=== PATIENT | male | born 1990 | race African-American/Black ===

== ENCOUNTER 2019-01-05 18:24 | Inpatient (IN) ==
[2019-01-05] MEDS ORDERED: ZOFRAN IV ONE (18:53)
[2019-01-05] MEDS ORDERED: SODIUM CHLORIDE 0.9% INJ ONE ×2 (18:53→18:54)
[2019-01-05] MEDS ORDERED: PROTONIX IV ONE (18:53)
[2019-01-05] MEDS ORDERED: PEPCID IV ONE (18:53)
[2019-01-05] MEDS ORDERED: G.I. COCKTAIL PO ONE (18:58)
--- NOTE | 2019-01-05 19:01 | PROVIDER DOCUMENTATION ---
This chart was entered by Adonay Olmstead Scribe, acting as scribe for Anthony Hood MD. HPI-Abdominal Pain/GI Problem - General Source: patient, EMS - History of Present Illness-ABD Nature of Presenting Problems: Pt is a 28 yom who presents to the ED via EMS with a CC of abdominal pain. EMS reports they were called by the pt at approximately 1330 and states he was having severe abdominal pain. Pt reports he has vomited 12x times today and states he was throwing up blood. EMS reports no emesis was seen on the scene. EMS reports they smelt marijuana on the scene and states the pt said he smoked a blunt earlier. Pt reports he had chicken and a milkshake for lunch and states he ate it outside and proceeded to throw up. Pt reports having diarrhea this mo rning. Pt states he has been emotional lately and reports he lost his father and grandfather in the past month. Pt reports he had similar abdominal symptoms last year and states he was seen at [place] ED. Abdominal Pain Onset Location: reports: epigastric Quality of Pain: reports: aching Severity in ED: reports: mild Onset/Duration: reports: 4-6 hours ago Timing: reports: still present Associated Symptoms: reports: diarrhea, vomiting Last BM: this morning # of Diarrhea Episodes: 1 # of Vomiting Episodes: 12 Emesis Description: reports: blood-streaked Bruising or Bleeding Gums?: No Similar Symptoms Previously?: No Recently seen or treated by another doctor?: No <Anthony Hood - Last Filed: 01/05/19 19:00> <Aurora Cardenas - Last Filed: 01/06/19 06:00> - General Chief Complaint: Abdominal Pain Stated Complaint: abd pain Time Seen by Provider: 01/05/19 18:42 Allergies/Adverse Reactions: Patient Allergies Allergy/AdvReac Type Severity Reaction Status Date / Time Penicillins Allergy Mild RASH Verified 10/28/17 08:27 Home Medications: Home Medication List Medication Instructions Recorded Confirmed Last Taken Type Clindamycin [Cleocin] 150 mg PO Q6HR #30 cap 10/28/17 Unknown Rx Ibuprofen [Motrin] 800 mg PO Q8H PRN PRN #20 tab 10/28/17 Unknown Rx Omeprazole 20 mg PO DAILY #20 tablet. 10/28/17 Unknown Rx Review of Systems - Adult - REVIEW OF SYSTEMS - ADULT Constitutional: reports: see HPI Eyes: reports: no symptoms reported Ears, Nose, Mouth & Throat: reports: no symptoms reported Cardiovascular: reports: no symptoms reported Respiratory: reports: see HPI, shortness of breath Gastrointestinal: reports: see HPI, abdominal pain, hematemesis, diarrhea, vomiting Genitourinary: reports: no symptoms reported Musculoskeletal: reports: no symptoms reported Integumentary: reports: no symptoms reported Neurological: reports: no symptoms reported Psychiatric: reports: no symptoms reported Endocrine: reports: no symptoms reported Hematologic/Lymphatic: reports: no symptoms reported Allergic/Immunologic: reports: no symptoms reported All Other Systems: Reviewed and Negative <Anthony Hood - Last Filed: 01/05/19 19:00> Past History - Adult - PAST MEDICAL HISTORY-ADULT Review of Records: reports: Old Records Reviewed, Nursing Assessment Review, Medications Reviewed, Social history reviewed & non-contributory. Major Childhood Illnesses: reports: denies history Cardiovascular: reports: denies history Respiratory: reports: denies history Gastrointestinal: reports: denies history Obstetrical/Gynecological: reports: denies history Genitourinary: reports: denies history Musculoskeletal: reports: denies history Neurological: reports: Seizures/Epilepsy Endocrine/Immune: reports: denies history Other Conditions: reports: denies history - PRIOR SURGERIES/PROCEDURES Surgical/Procedure History: reports: none - IMMUNIZATION STATUS Childhood Immunizations: See Nurse Assessment Flu Vaccine: See Nurse Assessment - FAMILY HISTORY Family History: reviewed, not pertinent - SOCIAL HISTORY Smoking: denies, non-smoker Substance Use: alcohol, marijuana Alcohol Use Frequency: occasionally <Anthony Hood - Last Filed: 01/05/19 19:00> Physical Exam-General - PHYSICAL EXAM-ADULT Initial Vital Signs Reviewed: Yes - CONSTITUTIONAL General Appearance: alert, mild distress - EYES Eyes: PERRL/EOMI - HEAD, EARS, NOSE, MOUTH & THROAT HENMT: moist mucous membranes - NECK Neck: non-tender, full range of motion - RESPIRATORY Respiratory: chest non-tender, lungs clear, normal breath sounds, no pleuratic chest pain, no respiratory distress, no accessory muscle use - CARDIOVASCULAR Cardiovascular: normal peripheral pulses, regular rate, rhythm, no edema, no gallop, no JVD, no murmur - GASTROINTESTINAL (ABDOMEN) Abdominal Exam: tenderness (Epigastric) - MUSCULOSKELETAL Extremity: normal range of motion, non-tender - SKIN Integumentary: normal color, warm/dry - NEUROLOGIC Neurologic: grossly normal, no motor/sensory deficits - PSYCHIATRIC Psych/Mental Status: anxious <Anthony Hood - Last Filed: 01/05/19 19:00> Progress - CHANGE OF SHIFT REPORT (ED Provider) 1 Report Given and Care Transferred to:: dr Guan Time of Transfer: 19:01 Items Pending: Labs <Anthony Hood - Last Filed: 01/05/19 19:00> - PLAN OF CARE/RESULTS Progress/Plan/Lab Results: Vital Signs - 8 hr 01/05/19 19:11 Temperature 97.6 F Pulse Rate 56 L Respiratory Rate 17 Blood Pressure 134/75 O2 Sat by Pulse Oximetry 100 Laboratory Results - last 24 hr 01/05/19 01/05/19 01/05/19 18:58 18:58 18:58 WBC 18.65 H RBC 5.36 Hgb 14.9 Hct 44.9 MCV 83.8 MCH 27.8 MCHC 33.2 RDW Std Deviation 12.3 Plt Count 251 MPV 10.4 Immature Gran % (Auto) 0.3 Neut % (Auto) 92.0 H Lymph % (Auto) 4.3 L Parmer % (Auto) 3.3 Eos % (Auto) 0.0 Baso % (Auto) 0.1 Immature Gran # (Auto) 0.05 H Neut # (Auto) 17.16 H Lymph # (Auto) 0.81 L Parmer # (Auto) 0.61 H Eos # (Auto) 0.00 Baso # (Auto) 0.02 Segmented Neutrophils 93 H Band Neutrophils 1 Lymphocytes 5 L Monocytes 1 PT 13.2 INR 0.99 PTT (Actin FS) 20.0 L Sodium 143 Potassium 3.8 Chloride 104 Carbon Dioxide 21 L Anion Gap 18 BUN 19 Creatinine 1.3 H Estimated GFR/1.73 m2 > 60 BUN/Creatinine Ratio 15 Glucose 142 H Calculated Osmolality 290 Calcium 10.3 H Magnesium 1.8 Total Bilirubin 0.51 AST 25 ALT 19 Alkaline Phosphatase 66 Total Protein 8.4 H Albumin 5.1 H Globulin 3.3 Albumin/Globulin Ratio 1.5 Lipase 26 Urine Source Urine Color Urine Turbidity Urine pH Ur Specific [place] Urine Protein Ur Glucose (Stick) Ur Ketones (Stick) Urine Blood Urine Nitrite Urine Bilirubin Urobilinogen Dipstick Urine Leukocytes Urine WBC (Auto) Urine RBC (Auto) U Epithel Cells (Auto) Urine Bacteria (Auto) Urine Opiates Screen Ur Oxycodone Screen Ur Methadone, Qual Ur Barbiturates Screen Ur Phencyclidine Scrn Ur Amphetamines Screen U Benzodiazepines Scrn Urine Cocaine Screen U Cannabinoids Screen 01/05/19 01/05/19 20:27 20:27 WBC RBC Hgb Hct MCV MCH MCHC RDW Std Deviation Plt Count MPV Immature Gran % (Auto) Neut % (Auto) Lymph % (Auto) Parmer % (Auto) Eos % (Auto) Baso % (Auto) Immature Gran # (Auto) Neut # (Auto) Lymph # (Auto) Parmer # (Auto) Eos # (Auto) Baso # (Auto) Segmented Neutrophils Band Neutrophils Lymphocytes Monocytes PT INR PTT (Actin FS) Sodium Potassium Chloride Carbon Dioxide Anion Gap BUN Creatinine Estimated GFR/1.73 m2 BUN/Creatinine Ratio Glucose Calculated Osmolality Calcium Magnesium Total Bilirubin AST ALT Alkaline Phosphatase Total Protein Albumin Globulin Albumin/Globulin Ratio Lipase Urine Source CLEAN CATCH Urine Color YELLOW Urine Turbidity CLEAR Urine pH 8.5 Ur Specific Furman 1.038 Urine Protein 100 A Ur Glucose (Stick) NEGATIVE Ur Ketones (Stick) 60 A Urine Blood NEGATIVE Urine Nitrite NEGATIVE Urine Bilirubin NEGATIVE Urobilinogen Dipstick 3 A Urine Leukocytes NEGATIVE Urine WBC (Auto) <10 Urine RBC (Auto) <10 U Epithel Cells (Auto) <10 Urine Bacteria (Auto) NEGATIVE Urine Opiates Screen PRESUMPTIVE POSITIVE A Ur Oxycodone Screen NONE DETECTED Ur Methadone, Qual NONE DETECTED Ur Barbiturates Screen NONE DETECTED Ur Phencyclidine Scrn NONE DETECTED Ur Amphetamines Screen NONE DETECTED U Benzodiazepines Scrn NONE DETECTED Urine Cocaine Screen NONE DETECTED U Cannabinoids Screen PRESUMPTIVE POSITIVE A Orders Category Date Time Status Saline Loc NOW Care 01/05/19 18:[address] ABD/PELVIS W/IV CONT ONLY [CT] Stat Exams 01/05/19 19:52 Completed CBC WITH ELECTRONIC DIFF [HEME] Stat Lab 01/05/19 18:58 Completed COMPREHENSIVE METABOLIC PANEL [CHEM] Stat Lab 01/05/19 18:58 Completed LIPASE [CHEM] Stat Lab 01/05/19 18:58 Completed MAGNESIUM [CHEM] Stat Lab 01/05/19 18:58 Completed PROTIME WITH INR [COAG] Stat Lab 01/05/19 18:58 Completed PTT [COAG] Stat Lab 01/05/19 18:58 Completed URINALYSIS W/POSS RFLX CULT [URINALYSIS] Stat Lab 01/05/19 20:27 Completed URINE DRUG SCREEN Stat Lab 01/05/19 20:27 Completed 0.9% Sodium Chloride Inj [Ns] 1,000 ml Med 01/05/19 20:56 Active IV 999 mls/hr Famotidine [Pepcid] Med 01/05/19 18:53 Discontinued 20 mg IV NOW ONE Ketorolac [Toradol] Med 01/05/19 19:53 Discontinued 30 mg IV NOW ONE Lido/Nelson Alk/Al&mg Hydrox [G.i. Cocktail] Med 01/05/19 18:58 Discontinued 30 ml PO NOW ONE Lorazepam [Ativan] Med 01/05/19 21:39 Discontinued 2 mg IV NOW ONE Ondansetron [Zofran] Med 01/05/19 18:53 Discontinued 4 mg IV NOW ONE Pantoprazole [Protonix] Med 01/05/19 18:53 Discontinued 40 mg IV NOW ONE Sodium Chloride 0.9% Med 01/05/19 18:54 Discontinued 10 ml INJ NOW ONE Sodium Chloride 0.9% Med 01/05/19 18:53 Discontinued 5 - 10 ml INJ NOW ONE Ptient signed out to me from Dr Hood pending labs and dispo. He appears to be very aparanoid and is acting a bit odd. He keeps trying to get out of bed and pull his monitors and wires off. His WBC is 18k and he was complaining of abd pain. CT negative. No other source of infection. Slightly dehydrated with CLAUDIA to 1.4. Could be grief reaction to recent deaths in his family. Additionally endorses black stools. Hgb stable. Family unable to handle his current state at home with 4 young daughters present. Spoke to family about admission. Given ativan to calm down. Spoke to Dr Vyas, production cell leader for hospitalist who accepted patient for admission. Further orders to be placed by their team. Result Diagrams: 01/05/19 18:58 01/05/19 18:58 - CT/MRI 1 CT Study: Abdomen (CT ABD/PELVIS W/IV CONT ONLY - 01/05/2019 INDICATION: leukocytosis, abd pain COMPARISON: 08/19/2017 FINDINGS: The lung bases are clear and the heart size is normal. The liver, gallbladder, spleen, pancreas, ad renals, and kidneys are normal. No bowel obstruction or inflammation. No adenopathy. Urinary bladder, prostate, and rectum are normal. Bones are intact and well mineralized. IMPRESSION: Negative exam. This exam was performed using automated exposure control, adjustment of mA or kV according to patient size, and/or use of iterative reconstruction technique Electronically signed by Carlos Cleaning 01/05/2019 8:57 PM) <Aurora Cardenas - Last Filed: 01/06/19 06:00> Departure - Departure Date of Disposition Decision: 01/05/19 Certified Medical Emergency: Emergent - Critical Care Note This patient required my direct & personal management of CC.: No <Anthony Hood - Last Filed: 01/05/19 19:00> - Departure Time of Disposition Decision: 21:42 <Aurora Cardenas - Last Filed: 01/06/19 06:00> - Departure DIAGNOSIS: CLAUDIA (acute kidney injury), Abnormal grief reaction, Bloody stool Abdominal pain Qualifiers: Abdominal location: generalized Qualified Code(s): R10.84 - Generalized abdominal pain Leukocytosis Qualifiers: Leukocytosis type: unspecified Qualified Code(s): D72.829 - Elevated white blood cell count, unspecified Disposition: ADMITTED INPATIENT 09 Condition: Stable Attestation - Physician/ QUITA Attestation Patient care was provided by Advanced Practice Provider:: No The physician spent face to face time with patient:: Yes Advanced Practice Provider documentation review:: Supervising physician onsite and consulted in the evaluation and care of this patient. The physician did have a face to face encounter with the patient. <Anthony Hood - Last Filed: 01/05/19 19:00> This chart was documented by the indicated scribe, (Adonay Olmstead Scribe) and accurately reflects the services I performed and decisions made by me, Anthony Hood MD, as attested by the provider's signature.
[2019-01-05 19:17] LABS: BASO# 0.02 X1000 (0.0-0.2); BASO% 0.1 % (0.0-0.8); HEMATOCRIT 44.9 % (42.0-52.0); HEMOGLOBIN 14.9 g/dL (14.0-18.0); IMM GRAN# 0.05 X1000 (0.0-0.04); IMM GRAN% 0.3 % (0.0-0.5); LYMPH# 0.81 X1000 (1.2-3.4); LYMPH% 4.3 % (20.5-51.1); MCH 27.8 PG (27-31); MCHC 33.2 g/dL (33-37); MCV 83.8 FL (81-99); MONO# 0.61 X1000 (0.11-0.59); MONO% 3.3 % (1.7-9.3); MPV 10.4 FL (7.4-10.4); NEUT# 17.16 X1000 (1.4-6.5); PLT 251 X1000 (130-400); RBC 5.36 XMIL (4.7-6.1); RDW 12.3 % (11.5-14.5); WBC 18.65 X1000 (4.8-10.8)
[2019-01-05 19:20] LABS: INR 0.99; PROTIME 13.2 Seconds (11.0-16.0)
[2019-01-05 19:28] LABS: BANDS 1 % (0-1); LYMPHS 5 % (21-51); MONO 1 % (1-9); SEGS 93 % (42-75)
[2019-01-05 19:34] LABS: AGAP 18; ALB/GLOB RATIO 1.5; ALBUMIN 5.1 g/dL (3.5-5.0); ALKALINE PHOSPHATASE 66 U/L (32-122); BUN 19 mg/dL (8-22); CALCIUM 10.3 mg/dL (8.8-10.2); CHLORIDE 104 mmol/L (98-107); COSMO 290; CREATININE 1.3 mg/dL (0.7-1.2); ESTIMATED GFR > 60; GLUCOSE 142 mg/dL (70-104); GOT 25 U/L (10-34); GPT 19 U/L (10-44); LIPASE 26 U/L (13-60); MAGNESIUM 1.8 mg/dL (1.5-2.7); POTASSIUM 3.8 mmol/L (3.5-5.1); SODIUM 143 mmol/L (136-145); TCO2 21 mmol/L (25-35); TOTAL BILIRUBIN 0.51 mg/dL (0.20-1.00); TOTAL PROTEIN 8.4 g/dL (6.3-8.3)
[2019-01-05] MEDS ORDERED: TORADOL IV ONE (19:53)
[2019-01-05 20:49] LABS: URINE SOURCE CLEAN CATCH
[2019-01-05] MEDS ORDERED: NS 1,000 ML IV ONE (20:56)
--- NOTE | 2019-01-05 21:00 | Diag Imaging Result Doc PS360 ---
CT ABD/PELVIS W/IV CONT ONLY - 01/05/2019 INDICATION: leukocytosis, abd pain COMPARISON: 08/19/2017 FINDINGS: The lung bases are clear and the heart size is normal. The liver, gallbladder, spleen, pancreas, adrenals, and kidneys are normal. No bowel obstruction or inflammation. No adenopathy. Urinary bladder, prostate, and rectum are normal. Bones are intact and well mineralized. IMPRESSION: Negative exam. This exam was performed using automated exposure control, adjustment of mA or kV according to patient size, and/or use of iterative reconstruction technique Electronically signed by Carlos Cleaning 01/05/2019 8:57 PM
[2019-01-05 21:03] LABS: BILIRUBIN URINE NEGATIVE (NEGATIVE); BLOOD URINE NEGATIVE (NEGATIVE); COLOR YELLOW; GLUCOSE URINE NEGATIVE (NEGATIVE); KETONE URINE 60 mg/dL (NEGATIVE); LEUKOCYTES URINE NEGATIVE (NEGATIVE); NITRITE URINE NEGATIVE (NEGATIVE); PH URINE 8.5; PROTEIN URINE 100 mg/dL (NEGATIVE); SP GRAVITY URINE 1.038; TURBIDITY URINE CLEAR (CLEAR); UROBILINOGEN URINE 3 mg/dL (NORMAL)
[2019-01-05 21:05] LABS: UR EPITHELIAL CELLS <10 /HPF (<10); URINE BACTERIA NEGATIVE /HPF; URINE RBC <10 /HPF (<10); URINE WBC <10 /HPF (<10)
[2019-01-05 21:18] LABS: UR AMPHETAMINES QUAL NONE DETECTED (NONE DETECT); UR BARBITUATES QUAL NONE DETECTED (NONE DETECT); UR BENZODIAZEPIN QUAL NONE DETECTED (NONE DETECT); UR CANNABINOIDS QUAL PRESUMPTIVE POSITIVE (NONE DETECT); UR COCAINE QUAL NONE DETECTED (NONE DETECT); UR METHADONE QUAL NONE DETECTED (NONE DETECT); UR OPIATES QUAL PRESUMPTIVE POSITIVE (NONE DETECT); UR OXYCODONE QUAL NONE DETECTED (NONE DETECT); UR PCP QUAL NONE DETECTED (NONE DETECT)
[2019-01-05] MEDS ORDERED: ATIVAN IV ONE (21:39)
--- NOTE | 2019-01-05 22:57 | HISTORY AND PHYSICAL ---
PRIMARY CARE PHYSICIAN: None. CHIEF COMPLAINT: Epigastric pain and dark stools x several days. HISTORY OF PRESENTING ILLNESS: A 28-year-old male without any significant past medical history presented to emergency department with several days' history of having worsening epigastric pain and dark stools. The patient was very anxious in the ED. Apparently his father had just recently, and he seems to be distraught from it. He was evaluated in the emergency department. Due to his presenting symptoms, it was thought that we will place him for observation for further evaluation and management. At the time of my examination, he had denied any headache, fever, chills and hemoptysis but complained of dark stools and epigastric pain. PAST MEDICAL HISTORY: None. PAST SURGICAL HISTORY: None. ALLERGIES: Penicillin. CURRENT MEDICATIONS: None. SOCIAL HISTORY: Denies any history of smoking. Admits to social alcohol use. Denies any illicit drug use. FAMILY HISTORY: No history of coronary disease. REVIEW OF SYSTEMS: Fourteen-point review of system as listed in HPI. Other systems negative. PHYSICAL EXAMINATION: GENERAL: Cooperative, friendly male. He is resting comfortably now. VITAL SIGNS: Temperature 97.6 degrees, pulse 56 respirations 17, blood pressure 134/75. HEENT: Atraumatic, normocephalic. Extraocular movements intact. PERRLA. NECK: No masses. CHEST: Clear to auscultation. CARDIOVASCULAR: Regular rate and rhythm. ABDOMEN: Soft. Mild tenderness. EXTREMITIES: No edema. NEUROLOGIC: He is awake, alert, oriented x3. GENITOURINARY: No bladder distention. SKIN: Warm. LABORATORIES AND STUDIES: WBCs 18.65, hemoglobin 14.9, hematocrit 44.9, platelets 251,000. Sodium 143, potassium 3.8, chloride 104, CO2 is 21, BUN is 19, creatinine is 1.3, glucose 142, lipase 26. IMAGING: CT of the abdomen: Negative exam. ASSESSMENT: A 28-year-old male without any significant past medical history presented to emergency department with several days history of having worsening epigastric pain along with dark tarry stools. He was evaluated in the emergency department. Due to his presenting symptoms, we will place him for observation for further evaluation and management. ASSESSMENT: 1. As epigastric pain. 2. Possible upper gastrointestinal bleed. 3. Anxiety. PLAN: 1. We will admit patient to medical floor with telemetry. 2. We will keep patient n.p.o. Continue with IV fluids, antiemetics. 3. Continue patient on a PPI. 4. Consult Gastroenterology. 5. We will give the patient low-dose anxiolytic. 6. We will continue to follow and reassess. Make further recommendation based on patient's clinical course. cc: Chacorta Vyas MD
[2019-01-05] MEDS ORDERED: NS 1,000 ML IV SCH (23:50)
[2019-01-05] MEDS ORDERED: NEXIUM PO ONE (23:50)
[2019-01-06] MEDS: MORPHINE IV PRN ×3 (00:12→15:40)
[2019-01-06] MEDS: ZOFRAN IV PRN ×5 (00:13→18:05)
[2019-01-06] MEDS: ATIVAN IV PRN ×4 (01:14→20:35)
[2019-01-06] MEDS: PROTONIX IV SCH ×2 (08:07→20:35)
[2019-01-06] MEDS: SODIUM CHLORIDE 0.9% INJ PRN ×2 (08:07→20:35)
[2019-01-06 08:35] LABS: HEMATOCRIT 40.8 % (42.0-52.0); HEMOGLOBIN 13.3 g/dL (14.0-18.0); MCH 27.7 PG (27-31); MCHC 32.6 g/dL (33-37); MPV 10.4 FL (7.4-10.4); RBC 4.8 XMIL (4.7-6.1); RDW 12.7 % (11.5-14.5); WBC 12.9 X1000 (4.8-10.8)
[2019-01-06 09:34] LABS: AGAP 18; BUN 17 mg/dL (8-22); CALCIUM 9.3 mg/dL (8.8-10.2); CHLORIDE 108 mmol/L (98-107); COSMO 297; CREATININE 1.3 mg/dL (0.7-1.2); ESTIMATED GFR > 60; GLUCOSE 148 mg/dL (70-104); POTASSIUM 3.6 mmol/L (3.5-5.1); SODIUM 147 mmol/L (136-145); TCO2 21 mmol/L (25-35)
[2019-01-06] MEDS: D5W 1,000 ML IV SCH ×2 (10:00→19:53)
[2019-01-06] MEDS ORDERED: HALDOL IM ONE (10:22)
[2019-01-06] MEDS: ZOSTRIX TOP PRN ×2 (13:40→19:54)
--- NOTE | 2019-01-06 18:03 | GASTROENTEROLOGY CONSULTATION ---
DATE: 01/06/2019 REASON FOR CONSULT: Epigastric pain, nausea, vomiting, and diarrhea. HISTORY OF PRESENT ILLNESS: Mr. Hall is a 28-year-old male. He came to the ER yesterday with epigastric pain, rating the pain as 10 out of 10, and describing it as a stabbing pain. Denied having any headache, fever, and chills. He said that yesterday around 2 p.m. he had a milkshake and immediately started having nausea, vomiting, and diarrhea. He vomited at least 12 to 13 times and his vomit looked green in color. Diarrhea was watery and had 3 to 4 episodes. He denied any blood in the stools. He does have a history of seizures, but not anything in the recent years. He has an extensive history of taking over-the- counter medications like Tylenol, Aleve, ibuprofen, and BC Powders almost every day, marijuana less than a gram every day. He chews tobacco, 1 pack a day. He mentioned using [place], but does not have a PCP or any provider that can prescribe him. His urine drug screen for opiates and cannabinoids was positive. No prior EGD or colonoscopy. No abnormal weight loss. REVIEW OF SYSTEMS: As per HPI. Otherwise, 12 point review of system is negative. PAST MEDICAL HISTORY: Seizures, marijuana abuse, tobacco abuse, and narcotic abuse. PAST SURGICAL HISTORY: None. ALLERGIES: Penicillin. CURRENT MEDICATIONS: OTC Tylenol, Aleve, ibuprofen, BC Powder, Narco. SOCIAL HISTORY: He is . Lives with his . Has 6 kids. He works at [employer] Denies having alcohol, consumes marijuana and tobacco everyday. FAMILY HISTORY: Mother has ulcers. Sister has H. pylori. PHYSICAL EXAMINATION: Vital Signs: Temperature is 99.9 degrees, pulse is 64, respirations is 16, blood pressure is 131/78, oxygen is 97% on room air. His weight is 148.9 pounds. BMI is 22.7 kg/m2. General: He is alert and oriented x3, but seems to be anxious and in no acute distress. HEENT: Pale conjunctivae. No icterus. PERRL. Neck: Supple. Chest: Clear to auscultation in the anterior and posterior roberson. Cardiovascular: Regular rate and rhythm. No rubs, murmurs, or gallops heard on auscultation. Abdomen: Soft, nondistended. Tender in the epigastric area. Active bowel sounds heard in all 4 quadrants. Extremities: No edema, cyanosis, or clubbing noted. 2+ pedal pulses present bilaterally. Neuro: Alert and oriented x3. Nonfocal. Cranial nerves 2-12 grossly intact. LABS: WBC is 12.90, RBCs 4.80, hemoglobin is 13.3, hematocrit is 40.8, platelet count is 222,000. Coagulation: His PT is 13.2, INR 0.99, PTT 20.0. Sodium is 147, potassium is 3.6, chloride is 108, carbon dioxide 21, anion gap is 18, BUN is 17, creatinine is 1.3, glucose is 148, calcium is 9.3, magnesium 1.8, AST 25, ALT 19, alkaline phosphatase 66. Urinalysis shows trace of urine protein, ketones. UDS is positive for opiates and cannabinoids. His CT of the abdomen and pelvis with contrast has shown a negative exam. ASSESSMENT: 1. Epigastric pain. 2. Nausea, vomiting. 3. Diarrhea. 4. Dehydration 5. Drug abuse. 6.Tobacco abuse. 7. Leukocytosis 8. Acute kidney injury PLAN: We will do an EGD tomorrow for his epigastric pain, nausea and vomiting. For dehydration, he is on IV fluids D5W @ 100 mls/hour per his primary care team, antiemetics Zofran for nausea and vomiting, GI prophylaxis protonix. We will continue to monitor his CBC and BMP. Further plan of care will be based on the EGD findings. Risks, benefits and alternatives of the procedure has been discussed, patient and family verbalized understanding of the plan of care. This plan was discussed with Dr. Alatorre. Thank you for your consult. Please call for any further questions or concerns. Dictated by KENYETTA Ramirez for Doroteo Alatorre MD PHYSICIAN ATTESTATION: I have seen and examined the patient. I have discussed and reviewed the the note by Veronica KUMARI and agree with findings and plan as documented. In brief, Mr. Hall is a 28 year old man with polypsubstance abuse who presents with intractable nausea and vomiting and epigastric pain in the setting of copious NSAID use and marijuana abuse. Workup is notable for leukocytosis, volume depletion, and CLAUDIA. He is currently on PP IV BID, IVFs, and antiemetics. Plan to keep him NPO after MN for diagnostic EGD to rule out PUD or other complications from NSAID use. No signs of pancreatitis, acute cholecystitis or hepatobiliary process. Will follow with you. JUAN
--- NOTE | 2019-01-06 22:02 | PROGRESS NOTE ---
DATE: 01/06/2019 SUBJECTIVE: The patient complains of persistent abdominal pain, as well as nausea and vomiting. The patient admits that he takes Goody's Powder for migraines that he gets once a month. OBJECTIVE: Vital Signs: Temperature 99 degrees, blood pressure 120/71, heart rate 72, respirations 17, O2 saturation is 100% on room air. General: This is a young male, lying in bed in no acute distress. Heart: S1, S2 normal. Regular rate and rhythm. Lungs: Equal air entry bilaterally. No wheezing. No rales. No rhonchi. Abdomen: Positive bowel sounds. Soft, nontender, nondistended. Extremities: No edema. No cyanosis. Neurologic: The patient is alert and oriented x3. LABORATORY: White blood cell count 12, hemoglobin 13, hematocrit 40, platelets 222,000. Sodium 147, potassium 3.6, chloride 108, BUN 17, creatinine 1.3, glucose 148. ASSESSMENT AND PLAN: 1. Abdominal pain. Possible peptic ulcer disease given the patient's nonsteroidal anti- inflammatory drug usage. Continue on IV Protonix. Gastroenterology has been consulted. 2. Leukocytosis. Improved. We will monitor closely. 3. Hypernatremia. We will change the patient to D5W. 4. Heavy marijuana usage. The patient has been counseled about cessation. 5. Deep vein thrombosis prophylaxis. We will start the patient on sequential compression devices. cc: Yamilet Pop MD
[2019-01-07] MEDS: ZOFRAN IV PRN ×3 (01:46→12:57)
[2019-01-07] MEDS: MORPHINE IV PRN ×2 (01:46→09:37)
[2019-01-07] MEDS: D5W 1,000 ML IV SCH (01:47)
[2019-01-07 07:09] LABS: HEMATOCRIT 37.9 % (42.0-52.0); HEMOGLOBIN 12.3 g/dL (14.0-18.0); MCH 28.1 PG (27-31); MCHC 32.5 g/dL (33-37); MCV 86.7 FL (81-99); MPV 10.6 FL (7.4-10.4); RBC 4.37 XMIL (4.7-6.1); RDW 12.8 % (11.5-14.5); WBC 11.56 X1000 (4.8-10.8)
[2019-01-07] MEDS: ATIVAN IV PRN ×2 (07:30→07:32)
[2019-01-07 07:38] LABS: AGAP 10; BUN 10 mg/dL (8-22); CALCIUM 9.1 mg/dL (8.8-10.2); CHLORIDE 104 mmol/L (98-107); COSMO 281; CREATININE 1.1 mg/dL (0.7-1.2); ESTIMATED GFR > 60; GLUCOSE 112 mg/dL (70-104); POTASSIUM 3.5 mmol/L (3.5-5.1); SODIUM 141 mmol/L (136-145); TCO2 27 mmol/L (25-35)
[2019-01-07] MEDS: ZOSTRIX TOP PRN (07:47)
[2019-01-07] MEDS: SODIUM CHLORIDE 0.9% INJ PRN (07:48)
[2019-01-07] MEDS: PROTONIX IV SCH ×2 (07:48→22:04)
[2019-01-07] MEDS ORDERED: DIPRIVAN 1% ONE (08:52)
[2019-01-07] MEDS ORDERED: XYLOCAINE-MPF 2% ONE (09:02)
--- NOTE | 2019-01-07 09:10 | ENDOSCOPY OPERATIVE NOTE ---
[facility] ENDOSCOPY OPERATIVE NOTE , PATIENT: Joce Hall ADMISSION DATE: 01/07/2019 [facility]#: [id number] [facility] 1990 [id number] EGD PROCEDURE REPORT PROCEDURE DATE: 01/07/2019 SURGEON: Doroteo Alatorre MD STATUS: inpatient PRODUCTION TECHNICIAN: PREOPERATIVE DIAGNOSIS: The patient is a 28 yr old male here for an EGD due to vomiting, nausea, and epigastric abdominal pain. PROCEDURE PERFORMED: EGD w/ biopsy MEDICATIONS: Per Anesthesia TOPICAL ANESTHETIC: none CONSENT: The patient understands the risks and benefits of the procedure and understands that these r isks include, but are not limited to: sedation, allergic reaction, infection, perforation and/or bleeding. Alternative means of evaluation and treatment include, among others: physical exam, x-rays, and/or surgical intervention. The patient elects to proceed with this endoscopic procedure. HISORY AND PHYSICAL: 01/07/2019 function. Hand hygiene and appropriate measures for infection prevention was taken. After the risks, benefits and alternatives of the procedure were thoroughly explained, Informed consent was verified, confirmed and timeout was successfully executed by the treatment team. The patient was anesthetized with topical anesthesia and the [id number]-[id number] ([id number]) endoscope was introduced through the mouth and advanced to the second portion of the duoden um. Retroflexion was performed in the stomach and revealed a hiatal hernia. The gastroscope was then slowly withdrawn and removed. ESOPHAGUS: Reflux esophagitis was found in the lower third of the esophagus. Esophagitis was LA Clas s A: One or more mucosal breaks < 5 mm in maximal length. A small 2cm hiatal hernia was seen. STOMACH: A patch of severe gastritis (inflammation) was found in the gastric body. A biopsy was perf ormed using cold forceps in the gastric body and gastric antrum. Sample sent for histology. DUODENUM: The duodenum was normal. SPECIMENS REMOVED: Yes ADVERSE EVENTS: There were no complications. POSTOPERATIVE DIAGNOSIS: 1. Reflux esophagitis in the lower third of the esophagus 2. A patch of severe gastritis (inflammation) was found in the gastric body; a biopsy was performed 3. The duodenum was normal 4. Small hiatal hernia. RECOMMENDATIONS: 1. Await biopsy results 2. Transition PPI to PO once daily Regular diet Avoid NSAIDs/aspirin Avoid marijuana use REPEAT EXAM: Doroteo Alatorre MD eSigned: Doroteo Alatorre MD 01/07/2019 9:09 AM cc: PATIENT NAME: Joce Hall MR#: [id number]
[2019-01-07] MEDS ORDERED: ZOFRAN ONE (09:11)
[2019-01-07] MEDS ORDERED: SODIUM CHLORIDE 0.9% INJ ONE (10:06)
[2019-01-07] MEDS ORDERED: PHENERGAN IV ONE (10:06)
[2019-01-07] MEDS ORDERED: DILAUDID IV ONE ×2 (11:10→15:05)
[2019-01-07] MEDS ORDERED: COMPAZINE IV ONE ×2 (11:11→16:11)
[2019-01-07] MEDS ORDERED: HALDOL IM ONE (11:34)
--- NOTE | 2019-01-07 13:11 | Diag Imaging Result Doc PS360 ---
ABDOMEN FLAT/UPRIGHT - 01/07/2019 INDICATION: pain COMPARISON: Prior abdomen CT FINDINGS: There is a nonobstructive bowel gas pattern. No free air or abdominal calcifications. IMPRESSION: No acute disease. Electronically signed by Carlos Cleaning 01/07/2019 1:09 PM
[2019-01-07] MEDS: NS 1,000 ML IV SCH (15:42)
[2019-01-07] MEDS: SODIUM CHLORIDE 0.9% INJ SCH (22:04)
[2019-01-07] MEDS: CARAFATE LIQUID PO SCH (22:04)
[2019-01-07] MEDS: REGLAN IV SCH (22:04)
--- NOTE | 2019-01-08 01:32 | PROGRESS NOTE ---
DATE: 01/07/2019 SUBJECTIVE: The patient had his EGD this morning, which revealed severe gastritis. The patient also continues to have persistent nausea with vomiting and generalized abdominal pain. He also was observed by the nursing staff to be sticking his fingers in his mouth and trying to make himself vomit several times since returning from his procedure this morning. OBJECTIVE: Vital Signs: Temperature 98.7 degrees, blood pressure 122/71, heart rate 60, respirations 18, O2 saturation 95% on room air. General: This is a young male lying in bed in mild distress. Head: Normocephalic, atraumatic. Heart: S1, S2 normal. Regular rate and rhythm. Lungs: Clear to auscultation bilaterally. Abdomen: Positive bowel sounds. Soft, diffuse tenderness. Extremities: No edema. No cyanosis. Neurologic: The patient is complaining of severe pain, but he is alert and oriented x4. LABS: White blood cell count 11, hemoglobin 12, hematocrit 37, platelets 190,000. Sodium 141, potassium 3.5, chloride 104, CO2 of 27, BUN 10, creatinine 1.1. Glucose 112. Abdominal x-ray, no acute disease. ASSESSMENT AND PLAN: 1. Severe abdominal pain. This is likely secondary to the patient's severe gastritis. We will continue with proton pump inhibitor therapy. The patient is too nauseous to tolerate Carafate at this time. Continue with IV Protonix every 12 hours. GI is following. 2. Severe gastritis. Continue on IV Protonix. Once the patient is able to tolerate liquids, will start Carafate. 3. Persistent nausea and vomiting. The patient has been given Zofran, Phenergan, and Compazine, all of which have not relieved his nausea. We will try Reglan. Continue with IV fluids until the patient is able to tolerate oral intake. We will likely have to consider starting Clinimix if the patient continues to have difficulty with tolerating liquids. The patient was advised to stop trying to make himself vomit by sticking his fingers in his throat. 4. History of migraine headaches. Aware. 5. Heavy marijuana usage. The patient has been counseled about cessation. This may be contributing to the patient's persistent nausea and vomiting, at this time. 6. Deep vein thrombosis prophylaxis. Continue with sequential compression devises. 7. Disposition: I updated the patient's and all of his family that was present at the bedside about the patient's medical condition and the plan of care. They are in agreement with the treatment plan at this time. cc: Yamilet Pop MD MTDD
[2019-01-08] MEDS: CARAFATE LIQUID PO SCH ×5 (04:25→21:55)
[2019-01-08] MEDS: REGLAN IV SCH ×3 (04:25→13:16)
[2019-01-08] MEDS: NS 1,000 ML IV SCH ×2 (04:26→22:40)
[2019-01-08] MEDS ORDERED: PROTONIX PO SCH (07:00)
[2019-01-08 07:38] LABS: HEMATOCRIT 39.8 % (42.0-52.0); HEMOGLOBIN 13.5 g/dL (14.0-18.0); MCH 29.4 PG (27-31); MCHC 33.9 g/dL (33-37); MCV 86.7 FL (81-99); MPV 10.5 FL (7.4-10.4); RBC 4.59 XMIL (4.7-6.1); RDW 12.6 % (11.5-14.5); WBC 7.67 X1000 (4.8-10.8)
[2019-01-08 07:50] LABS: AGAP 11; BUN 9 mg/dL (8-22); CALCIUM 8.8 mg/dL (8.8-10.2); CHLORIDE 104 mmol/L (98-107); COSMO 280; ESTIMATED GFR > 60; GLUCOSE 98 mg/dL (70-104); POTASSIUM 3.6 mmol/L (3.5-5.1); SODIUM 141 mmol/L (136-145); TCO2 26 mmol/L (25-35)
[2019-01-08 07:56] LABS: ALB/GLOB RATIO 1.8; DIRECT BILIRUBIN 0.2 mg/dL (0.00-0.20); TOTAL BILIRUBIN 0.81 mg/dL (0.20-1.00); TOTAL PROTEIN 6.2 g/dL (6.3-8.3)
[2019-01-08] MEDS: PROTONIX IV SCH ×3 (08:00→20:39)
--- NOTE | 2019-01-08 10:53 | Diag Imaging Result Doc PS360 ---
EXAM: US ABDOMEN-COMPLETE HISTORY: abd pain, nausea, vomiting, elevated lipase TECHNIQUE: Abdominal ultrasound COMPARISON: Recent CT FINDINGS: Normal pancreas. Normal aorta and inferior vena cava. No focal hepatic abnormality. Normal right kidney. No hydronephrosis. Normal gallbladder. No stones. The common bile duct measures 3 mm. No ascites. Normal spleen. Normal left kidney. No hydronephrosis. IMPRESSION: Normal abdominal ultrasound Electronically signed by Souleymane Pride 01/08/2019 10:51 AM
--- NOTE | 2019-01-08 12:37 | PROGRESS NOTE ---
DATE: 01/08/2019 SUBJECTIVE: The patient states that he is feeling better today. He has no more nausea. He has had no more vomiting. He does have generalized body pain. He states his muscles are sore from all the vomiting. He did drink some apple juice, grape juice, and Coke through the night without any nausea, vomiting, or abdominal pain. OBJECTIVE: Vital Signs: Blood pressure is 103/84, with a heart rate of 72, respirations 16, temperature is 98.4 degrees oral, with room air saturations of 96 to 100 percent. General: This is a 28-year-old male who is lying in the bed, in no distress. HEENT: Head is normocephalic, atraumatic. Mucous membranes are moist. Neck is supple with trachea midline. No JVD. Cardiovascular: Regular rate and rhythm. S1 and S2 are appreciated. Calves are nontender bilaterally, with peripheral pulses palpable x4 extremities. Pulmonary: Breath sounds are clear with no increased work of breathing noted. Gastrointestinal: Abdomen is soft, nondistended. Does have some tenderness to palpation in the epigastric to bilateral upper quadrants. Bowel sounds in all 4 quadrants. Neurologic: He is alert and oriented. Labs: WBC is 7.6, with hemoglobin 13.5, hematocrit 39.8, platelets of 167,000. Sodium 141, potassium 3.6, BUN 9, creatinine 1, glucose is 98. Lipase is 113. ASSESSMENT AND PLAN: 1. Severe abdominal pain. This has all but resolved. He states that he does have a little discomfort over the last 12 hours that he rates a 1/10. We will continue with his Protonix. Continue Carafate. Gastroenterology is following. 2. Severe gastritis. Continue intravenous Protonix, Carafate, and we will start clear liquids after testing this morning. 3. Persistent nausea and vomiting. This has resolved. 4. History of migraine headaches. Aware. 5. Heavy marijuana usage. The patient and I did, for the third time since hospitalization, discuss the importance of marijuana cessation. We did discuss hyperemesis cannabinoid syndrome. We also did discuss the fact that marijuana paralyzes the gastrointestinal tract which can lead to these symptoms as well as gallbladder trouble. He did voice understanding. 6. Heavy aspirin use. The patient and I did discuss, for the second time in this hospitalization, the importance of not taking aspirin or anti-inflammatories to which he did voice understanding. 7. Deep venous thrombosis prophylaxis. We will continue with sequential compression devices. 8. The patient will remain nothing per oral for a HIDA scan and abdominal ultrasound today. We did discuss that he should remain NPO until we diswcuss results of both tests, to which he and his mother voiced understanding. 9. Check a CBC and a BMP and lipase in the morning. Dictated by KENYETTA Morfin for Yamilet Pop MD cc: KENYETTA Morfin MD I performed a face to face encounter on the patient. I reviewed all labs. I agree with the assessment and plan as dictated. [facility]
--- NOTE | 2019-01-08 13:05 | Diag Imaging Result Doc PS360 ---
EXAM: HIDA SCAN W/ EJECTION FRACTION HISTORY: abdominal pain TECHNIQUE: Nuclear medicine HIDA scan with gallbladder ejection fraction COMPARISON: None. FINDINGS: 5.1 mCi Choletec administered. There is normal uptake in the liver. Normal filling of the gallbladder with emptying into the small bowel. Ensure was given to determine the gallbladder ejection fraction. This is calculated to be 61% at 45 minutes. IMPRESSION: Normal HIDA scan and gallbladder ejection fraction Electronically signed by Souleymane Pride 01/08/2019 1:02 PM
[2019-01-08] MEDS: ZOFRAN IV PRN ×3 (13:13→21:55)
[2019-01-08] MEDS: DILAUDID IV PRN ×3 (13:13→22:36)
[2019-01-08] MEDS ORDERED: G.I. COCKTAIL PO ONE (14:42)
[2019-01-08] MEDS: SODIUM CHLORIDE 0.9% INJ SCH (15:31)
[2019-01-08] MEDS ORDERED: ATIVAN IV ONE (16:14)
--- NOTE | 2019-01-08 18:30 | GASTROENTEROLOGY PROGRESS NOTE ---
DATE: 01/08/2019 SUBJECTIVE: Mr. Hall is a 28-year-old male, resting in bed. Denied any nausea or vomiting, but complained of generalized abdominal pain in the lower quadrants. He is currently n.p.o. for HIDA scan and abdominal U/S. OBJECTIVE: Vital Signs: Temperature is 98.4 degrees, pulse is 72, respirations of 16, blood pressure is 103/84, oxygen saturation is 98 on room air. General: Alert, oriented x3, in no acute distress. HEENT: Pale conjunctivae. No icterus. PERRL. Neck: Supple. Lungs: Clear to auscultation in anterior and posterior roberson. Cardiovascular: Regular rate and rhythm. No murmurs, rubs, or gallops heard on auscultation. Abdomen: Soft, nondistended. Tender in the lower quadrants. Active bowel sounds heard in all 4 quadrants. Extremities: No clubbing, no cyanosis, or edema noted. 2+ pedal pulses present bilaterally. Neurologic: Alert and oriented x3. LABS AND DIAGOSTIC TEST: WBC 7.67, RBC 4.59, Hg 13.5, Hct 39.8, Platelets [id number], sodium 141, potassium 3.6, BUN 11, Creatinine 9, lipase 113 AST 25, ALT 19, alkaline phosphate 66, Abdomen X-ray - no a cute distress, CT of abd/pelvis - negative, abdominal U/S and HIDA scan - normal. IMPRESSION AND PLAN: Epigastric pain Nausea/Vomiting Dehydration Gastritis Leukocytosis Acute Kidney injury Tobacco abuse Marijuana abuse Mildly elevated Lipase this AM. Plan: The patient is currently n.p.o. for his HIDA scan, he can continue having clear liquids after the test. He has denied any nausea and vomiting. We will continue his GI prophylaxis protonix and carafate for gastritis. His EGD findings was reflux esophagitis and gastritis. Biopsy was performed and awaiting the results. We will continue the patient with antiemetics, Zofran and Reglan for nausea, IV fluids, normal saline at 100 mL for dehydration. His hemoglobin today was 13.5 and hematocrit was 39.8. We will continue to monitor his CBCs and his BMPs and follow the plan of care per primary care team. We have discussed with the risk of marijuana (may cause cyclic vomiting syndrome) and tobacco use, advised patient to stop consuming it, patient acknowledge understanding of the instructions. This plan was discussed with Dr. Colby. Please call us for any further questions or concerns. Dictated by KENYETTA Ramirez for Louis Colby MD cc: Louis Colby MD Patient seen and examined myself. I agree with the above plan of care. I have discussed the above with the patient and mother at bedside and all questions were answered. Please call us with any further questions MTDD
--- NOTE | 2019-01-08 18:59 | PROGRESS NOTE ---
DATE: 01/08/2019 SUBJECTIVE: I spoke with Mr. Hall this morning and he had no abdominal pain, no nausea or vomiting. He stated that he drank clear liquids in the form of apple juice, grape juice and Coke through yesterday afternoon and at night without any nausea, vomiting or abdominal pain. We discussed that he needed to stay NPO for his HIDA scan and abdominal ultrasound, that I would watch for results, and once resulted I would come update him. If they were normal, we could start him on clear liquids and advance his diet. The patient and mother both voiced understanding of this. Dr. Colby was in the room at the time that this was discussed. Dr. Colby did discuss with the patient that he needed to avoid any spicy foods, tomato foods, any caffeine, Coke, coffee, tea, etc. The patient and his mother voiced understanding. I went into the room to update Mr. Hall and found him on the floor in his boxer shorts, crawling on all fours, stopping to stick his finger down his throat to make himself gag. His mother was at the bedside and she was very upset and crying. The patient stated that he drank an Ensure, and symptoms began within about 5 minutes of drinking that Ensure. I did reiterate that we did discuss that he would stay NPO until we discussed results, and if they were normal he would start clear liquids, avoiding foods as stated above per Dr. Colby. He and the mother both did reiterate that they heard this discussion, although he drank an Ensure. They were not forthcoming about where he got the Ensure. While we were talking the patient had requested a 7-Up and this had been brought him, and he did take a few sips. He denied any pain or nausea. He had no gagging after having the sips of Sprite. The patient had taken a few sips out of a Sprite. He stated that his symptoms did not change drinking the Sprite. In fact, it made him feel better, although he still complained of epigastric pain. Dr. Colby and Dr. Pop were notified. GI cocktail was ordered. Dictated by KENYETTA Morfin for Yamilet Pop MD cc: KENYETTA Morfin MD [facility]
[2019-01-09] MEDS: ZOFRAN IV PRN ×6 (02:12→23:11)
[2019-01-09] MEDS: CARAFATE LIQUID PO SCH ×2 (02:14→08:11)
[2019-01-09] MEDS: DILAUDID IV PRN ×6 (02:34→23:05)
[2019-01-09 07:14] LABS: BASO# 0.03 X1000 (0.0-0.2); BASO% 0.3 % (0.0-0.8); EOS# 0.01 X1000 (0.0-0.7); EOS% 0.1 % (0.0-10.0); HEMATOCRIT 39.3 % (42.0-52.0); HEMOGLOBIN 12.9 g/dL (14.0-18.0); LYMPH# 1.39 X1000 (1.2-3.4); MCH 27.8 PG (27-31); MCHC 32.8 g/dL (33-37); MCV 84.7 FL (81-99); MONO# 0.59 X1000 (0.11-0.59); MONO% 6.8 % (1.7-9.3); MPV 10.6 FL (7.4-10.4); NEUT# 6.67 X1000 (1.4-6.5); NEUT% 76.8 % (42.2-75.2); PLT 187 X1000 (130-400); RBC 4.64 XMIL (4.7-6.1); RDW 12.1 % (11.5-14.5); WBC 8.69 X1000 (4.8-10.8)
[2019-01-09 08:05] LABS: AGAP 11; BUN 10 mg/dL (8-22); CALCIUM 8.9 mg/dL (8.8-10.2); CHLORIDE 100 mmol/L (98-107); COSMO 272; CREATININE 0.9 mg/dL (0.7-1.2); ESTIMATED GFR > 60; GLUCOSE 91 mg/dL (70-104); LIPASE 26 U/L (13-60); POTASSIUM 3.4 mmol/L (3.5-5.1); SODIUM 137 mmol/L (136-145); TCO2 26 mmol/L (25-35)
[2019-01-09] MEDS: PROTONIX IV SCH (08:13)
[2019-01-09 08:17] LABS: ALB/GLOB RATIO 1.6; ALBUMIN 4.1 g/dL (3.5-5.0); DIRECT BILIRUBIN 0.2 mg/dL (0.00-0.20); TOTAL BILIRUBIN 0.75 mg/dL (0.20-1.00); TOTAL PROTEIN 6.6 g/dL (6.3-8.3)
[2019-01-09] MEDS: NS 1,000 ML IV SCH ×2 (08:20→19:23)
[2019-01-09] MEDS ORDERED: BUSPAR PO ONE (10:39)
[2019-01-09] MEDS: TOPAMAX PO SCH (13:09)
--- NOTE | 2019-01-09 16:15 | GASTROENTEROLOGY PROGRESS NOTE ---
DATE: 01/09/2019 SUBJECTIVE: Mr. Hall 28 year old male was walking in the hallway, he mentioned feeling very good. He denied any nausea, vomiting, abdominal pain. OBJECTIVE: Vital Signs: Temperature is 98.8 degrees, pulse is 79, respirations 16, blood pressure is 128/80, oxygen saturation is 97 on room air. Weight 148.7 pounds, BMI 22.7 kg per meter square. General: Alert, oriented x3, in no acute distress. HEENT: Pale conjunctivae. No icterus. PERRL. Neck: Supple. Lungs: Clear to auscultation in anterior and posterior roberson. Cardiovascular: Regular ate and rhythm. No rubs or gallops on auscultation. Abdomen: Nondistended, nontender. Soft. Active bowel sounds heard in all 4 quadrants. Extremities: No cyanosis, clubbing, or edema, 2+ pedal pulses noted bilaterally. Neurologic: Alert and oriented x3. LAB: WBC 8.69, RBC is 12.6, hemoglobin is 12.9, hematocrit is 39.3, platelets 187, Sodium 137, potassium is 3.4. BUN is 10 and creatinine 0.9. AST 33, ALT is 22. Abdominal ultrasound showed normal abdominal ultrasound. Abdominal x-ray showed no negative disease. IMPRESSION AND PLAN: Epigastric pain Nausea and vomiting Dehydration Gastritis Leukocytosis Acute Kidney injury Elevated LFT's Tobacco abuse Marijuana abuse PLAN: Patient is currently on clear liquids, We will advance it to regular diet. Continue his Protonix 40 mg p.o. b.i.d. for 6 to 8 weeks for gastritis, He is getting antiemetic, Zofran for nausea and vomiting His H & H was 12.9 and 39.3, we will continue to monitor his CBCs and BMPs, and continue to follow plan of care per PCP. Discussed the risks and health hazards associated with tobacco and marijuana use, advised to stop using these products, patient acknowledges understanding of the instructions. This plan was discussed with Dr. Alatorre. Please call us with any further questions or concerns. Dictated by KENYETTA Ramirez for Doroteo Alatorre MD Physician Attestation I have seen and examined the patient. I have discussed and reviewed the the note by Veronica KUMARI and agree with findings and plan as documented. In brief, Mr. Hall is a 28 year old man with polypsubstance abuse who presents with intractable nausea and vomiting and epigastric pain in the setting of copious NSAID use and marijuana abuse. EGD showed LA grade A esophagitis and severe gastritis. Biopsies to rule out H pylori were obtained. HIDA scan was negative. His symptoms improved significantly overnight. He is tolerating PO. He is on PPI PO BID, which he should continue for 6-8 weeks. He was advised to avoid NSAIDs and marijuana use. Will sign off. Please call with questions. [facility]
--- NOTE | 2019-01-09 20:04 | PROGRESS NOTE ---
DATE: 01/09/2019 SUBJECTIVE: The patient is in better spirits today. He states that his abdominal pain has improved, and he is not nauseated like he was for the last two or three days. He was able to tolerate his clear liquid diet without any pain. OBJECTIVE: Vital Signs: Temperature 98.5 degrees, blood pressure 116/83, heart rate 63, respirations 15, O2 saturation is 100% on room air. General: This is a young male sitting up in bed in no acute distress. Heart: S1, S2 normal. Regular rate and rhythm. Lungs: Clear to auscultation bilaterally. Neurologic: The patient is alert and oriented x3. LABORATORY: Hemoglobin 12, hematocrit 39, platelets 187,000. Sodium 137, potassium 3.4, chloride 100, CO2 of 26, BUN 10, creatinine 0.9, glucose 91. ASSESSMENT AND PLAN: 1. Severe gastritis. Slowly improving. The patient was able to tolerate a clear liquid diet this morning for breakfast. Continue on Protonix and Carafate. Gastroenterology is following. The patient was counseled about avoiding NSAID. 2. History of migraine headaches. We will start the patient on Topamax. 3. Heavy marijuana dependence. The patient has been counseled about cessation. 4. Depression with anxiety. We will start the patient on BuSpar. 5. Disposition. The patient can be discharged home once he is able to tolerate a solid diet. cc: Yamilet Pop MD
[2019-01-09] MEDS: PROTONIX PO SCH (20:11)
[2019-01-10] MEDS: DILAUDID IV PRN ×2 (03:12→10:02)
[2019-01-10] MEDS: ZOFRAN IV PRN ×2 (03:13→10:03)
[2019-01-10 07:26] VITALS: BP 123/75
[2019-01-10] MEDS: TOPAMAX PO SCH (08:20)
[2019-01-10] MEDS: PROTONIX PO SCH (08:20)
[2019-01-10 08:22] LABS: AGAP 10; BUN 7 mg/dL (8-22); CALCIUM 9.2 mg/dL (8.8-10.2); CHLORIDE 104 mmol/L (98-107); COSMO 277; CREATININE 1.2 mg/dL (0.7-1.2); ESTIMATED GFR > 60; GLUCOSE 87 mg/dL (70-104); PHOSPHORUS 3.7 mg/dL (2.7-4.5); POTASSIUM 3.9 mmol/L (3.5-5.1); SODIUM 140 mmol/L (136-145); TCO2 26 mmol/L (25-35)
[2019-01-10] MEDS ORDERED: BUSPAR PO SCH (09:00)
--- NOTE | 2019-01-15 06:19 | DISCHARGE SUMMARY ---
ADMISSION DATE: 01/05/2019 DISCHARGE DATE: 01/10/2019 FINAL DISCHARGE DIAGNOSES: 1. Severe gastritis. 2. History of migraine headaches. 3. Heavy marijuana dependence. 4. Depression. 5. Anxiety disorder. CONSULTATIONS: GI consultation with Dr. Alatorre. PROCEDURE: Esophagogastroduodenoscopy performed on 01/07/2019 that revealed severe gastritis in the gastric body. HOSPITAL COURSE: Mr. Hall is a 28-year-old male with a history of migraine headaches who presented to the ER with a chief complaint of a severe abdominal pain as well as nausea and vomiting. The patient was admitted to the hospitalist service. The patient was made NPO, and started on IV fluids, pain medication, and IV Protonix. The patient was taken for endoscopy on 01/07/2019 and found to have esophagitis as well as severe gastritis. The patient admitted that he had been using Goody Powder heavily because of headaches. He was advised to stop using NSAID's completely. The patient also was noted to have persistent nausea and vomiting. The patient admitted that he smoked marijuana heavily, and has been doing it for several years. The patient was treated with antiemetics and again proton pump inhibitor therapy. The patient eventually improved, and he was transitioned to oral PPI therapy. His diet was also slowly advanced. The patient admitted to suffering with bouts of depression and anxiety due to some recent deaths in the family, and was started on BuSpar. The patient continued to improve clinically, and was cleared for discharge home on 01/10/2019. DISCHARGE MEDICATIONS: 1. Protonix 40 mg p.o. twice a day. 2. Topamax 25 mg oral daily. 3. Zofran 4 mg oral every 6 hours p.r.n. for nausea. 4. BuSpar 7.5 mg oral every morning. DISCHARGE DIET: Regular diet. ACTIVITY: As tolerated. FOLLOWUP INSTRUCTIONS: The patient will need to follow up with Dr. Alatorre in 1 week to receive the results of the gastric biopsy. cc: Yamilet Pop MD
== END 2019-01-10 11:47 | disposition home or self-care (01) | DRG 392 ==
LOC: SUPCPDRO → 4N 18:24 → ED 18:24 → SUATTDRO 23:13 → OBSVTOIN 23:13
PROVIDERS: ATTEND Internal Medicine